=== PATIENT | female | born 1995 | race Caucasian/White ===

== ENCOUNTER 2018-10-20 18:30 | Emergency (ER) | payer SELFPAY, OTHER ==
[2018-10-20] MEDS: EPINEPHrine 1 MG INJ SC ×2 (19:55→21:37)
[2018-10-20] MEDS: KETOROLAC 30 MG INJ IM (19:56)
[2018-10-20] MEDS: METHYLPREDNISOLONE 125 MG INJ IM (20:30)
[2018-10-20] MEDS: DIPHENHYDRAMINE 25 MG CAP PO (20:31)
[2018-10-20] MEDS: FAMOTIDINE 20 MG TAB PO (20:31)
== END 2018-10-20 23:09 | disposition home or self-care (01) ==
LOC: FTE 18:30
DX: R22.0 Localized swelling, mass and lump, head (principal)
CPT/HCPCS: 81025; 87070; 96372; 99284-25